=== PATIENT | male | born 1960 | race Two or more races ===

== ENCOUNTER 2021-08-01 10:16 | Outpatient (CLI) | payer OTHER | END 2021-08-01 10:32 | disposition home or self-care (01) | LOC: LAB 10:16 | PROVIDERS: ATTEND Orthopaedic Surgery | DX: D64.89 Other specified anemias (principal); E11.8 Type 2 diabetes mellitus with unspecified complications; I48.91 Unspecified atrial fibrillation; N39.0 Urinary tract infection, site not specified; E03.8 Other specified hypothyroidism; M35.1 Other overlap syndromes; E11.9 Type 2 diabetes mellitus without complications; E55.9 Vitamin D deficiency, unspecified; Z12.5 Encounter for screening for malignant neoplasm of prostate; E88.89 Other specified metabolic disorders; D68.8 Other specified coagulation defects; Z22.322 Carrier or suspected carrier of Methicillin resistant Staphylococcus aureus; Z76.89 Persons encountering health services in other specified circumstances; I10 Essential (primary) hypertension; I49.8 Other specified cardiac arrhythmias ==

== ENCOUNTER 2021-08-02 07:54 | Outpatient (CLI) | payer OTHER | END 2021-08-02 07:56 | disposition home or self-care (01) | LOC: LAB 07:54 | PROVIDERS: ATTEND Internal Medicine | DX: D64.89 Other specified anemias (principal); E11.8 Type 2 diabetes mellitus with unspecified complications; I48.91 Unspecified atrial fibrillation; N39.0 Urinary tract infection, site not specified; E03.8 Other specified hypothyroidism; M35.1 Other overlap syndromes; E11.9 Type 2 diabetes mellitus without complications; E55.9 Vitamin D deficiency, unspecified; Z12.5 Encounter for screening for malignant neoplasm of prostate ==

== ENCOUNTER 2021-08-12 06:15 | Day surgery (SDC) | payer OTHER ==
[~2021-08-12 06:15] MED LIST: ADULT LOW DOSE81 M1 PO; COLCHICINE0.6 MG PO; PROBENECID500 MG PO
== END 2021-08-12 15:35 | disposition home or self-care (01) ==
LOC: CIR.AMB 06:15
PROVIDERS: ATTEND Orthopaedic Surgery
DX: S83.271A Complex tear of lateral meniscus, current injury, right knee, initial encounter (principal); M23.351 Other meniscus derangements, posterior horn of lateral meniscus, right knee; M23.311 Other meniscus derangements, anterior horn of medial meniscus, right knee; M12.261 Villonodular synovitis (pigmented), right knee; M22.41 Chondromalacia patellae, right knee; M22.11 Recurrent subluxation of patella, right knee; Z20.822 Contact with and (suspected) exposure to COVID-19